=== PATIENT | female | born 1945 | race Caucasian/White ===

== ENCOUNTER 2018-01-10 07:00 | Inpatient (IN) | payer OTHER ==
[~2018-01-10] VITALS: Ht 157.5 cm; Wt 86.6 kg
[~2018-01-10 07:00] MED LIST: CIPRO XR 5500 MG/BOT PO; ZOFRAN4 MG PO
[2018-01-10] MEDS ORDERED: AVAPRO150 MG PO (07:56)
[2018-01-10] MEDS ORDERED: MAXIDE PO (07:57)
[2018-01-10] MEDS ORDERED: ECOTRIN81 MG PO (07:58)
[2018-01-10] MEDS ORDERED: TENORMIN50 M1 PO (07:58)
[2018-01-10] MEDS ORDERED: ARICEPT5 MG PO (07:58)
[2018-01-10] MEDS ORDERED: CATAFLAN PO (07:59)
[2018-01-10] MEDS ORDERED: NAMENDA10 MG PO (07:59)
[2018-01-15] MEDS ORDERED: DICLOFENAC SODI25 MG PO (09:18)
[2018-01-17] MEDS ORDERED: XARELTO10 MG PO (08:44)
[2018-01-17] MEDS ORDERED: CIPRO500 MG PO (08:44)
[2018-01-17] MEDS ORDERED: PERCOCET 5-3251 EACH PO (08:44)
== END 2018-01-17 10:45 | DRG 470 ==
LOC: O/R 01-14 05:59 → MEDI 01-14 05:59 → SURH 01-14 07:00 → MEDI 01-14 18:43
PROVIDERS: Orthopaedic Surgery
PROC: 0QNF0ZZ Release Left Patella, Open Approach (ICD-10-PCS; 2018-01-14)
PROC: 0SRD0J9 Replacement of Left Knee Joint with Synthetic Substitute, Cemented, Open Approach (ICD-10-PCS; principal; 2018-01-14 12:00)
DX: M17.12 Unilateral primary osteoarthritis, left knee (principal); D62 Acute posthemorrhagic anemia; M81.0 Age-related osteoporosis without current pathological fracture; K80.20 Calculus of gallbladder without cholecystitis without obstruction; E66.01 Morbid (severe) obesity due to excess calories; M22.12 Recurrent subluxation of patella, left knee

== ENCOUNTER 2023-01-09 09:02 | Emergency (ER) | payer OTHER ==
[~2023-01-09] VITALS: Ht 157.5 cm; Wt 77.1 kg
[~2023-01-09 09:02] MED LIST changes: +ARICEPT5 MG PO; +AVAPRO150 MG PO; +CATAFLAN PO; +CIPRO500 MG PO; +DICLOFENAC SODI25 MG PO; +ECOTRIN81 MG PO; +MAXIDE PO; +NAMENDA10 MG PO; +PERCOCET 5-3251 EACH PO; +TENORMIN50 M1 PO; +XARELTO10 MG PO
[2023-01-09] MEDS ORDERED: PROTONIX40 MG (09:13)
[2023-01-09] MEDS ORDERED: RAZADYNE ER24 MG (09:13)
[2023-01-09] MEDS ORDERED: NAMENDA XR28 MG (09:13)
[2023-01-09] MEDS ORDERED: TENORMIN50 M1 (09:13)
[2023-01-09] MEDS ORDERED: FOLIC ACID0.4 MG (09:14)
[2023-01-09] MEDS ORDERED: GLUMETZA500 MG (09:14)
[2023-01-09] MEDS ORDERED: NEURONTIN300 MG (09:14)
[2023-01-09] MEDS ORDERED: CYMBALTA60 MG (09:14)
[2023-01-09] MEDS ORDERED: DULOXETINE HCL40 MG (09:15)
[2023-01-09] MEDS ORDERED: PRAVASTATIN SOD10 MG (09:15)
[2023-01-09] MEDS ORDERED: TYLENOL ARTHRI650 MG (09:15)
[2023-01-09] MEDS ORDERED: IRBESARTAN75 MG (09:15)
== END 2023-01-09 10:26 | disposition home or self-care (01) ==
LOC: ER 09:02
DX: S89.82XA Other specified injuries of left lower leg, initial encounter (principal); W18.39XA Other fall on same level, initial encounter; Y93.89 Activity, other specified; Y92.012 Bathroom of single-family (private) house as the place of occurrence of the external cause; R07.9 Chest pain, unspecified; Z88.0 Allergy status to penicillin; Z91.041 Radiographic dye allergy status; Z91.013 Allergy to seafood

== ENCOUNTER 2023-05-11 11:43 | Emergency (ER) | payer OTHER ==
[~2023-05-11] VITALS: Ht 167.6 cm; Wt 74.8 kg
[~2023-05-11 11:43] MED LIST changes: +CYMBALTA60 MG; +DULOXETINE HCL40 MG; +FOLIC ACID0.4 MG; +GLUMETZA500 MG; +IRBESARTAN75 MG; +NAMENDA XR28 MG; +NEURONTIN300 MG; +PRAVASTATIN SOD10 MG; +PROTONIX40 MG; +RAZADYNE ER24 MG; +TENORMIN50 M1; +TYLENOL ARTHRI650 MG
[2023-05-11 15:50] LABS: HEMOGLOBIN 11.9 g/dL (12.0-15.00); MEAN CELL VOLUME 96.3 fL (80.00-100.00); MEAN CORPUSCULAR HEMOGLOBIN 32.8 pg (27.00-32.0); MEAN CORPUSCULAR HGB CONC 34.1 g/dl (32.0-36.0); PLATELET COUNT 191 K/uL (150-450); RED BLOOD COUNT 3.63 M/uL (4.00-6.00); RED CELL DISTRIBUTION WIDTH 13.3 % (11.5-14.5)
[2023-05-11 16:47] LABS: CALCIUM 9.1 mg/dL (8.5-10.1); CREATININE SERUM 1.04 mg/dL (0.55-1.02); GFR 51.12; POTASSIUM 3.98 mEq/L (3.5-5.1)
== END 2023-05-11 20:11 | disposition home or self-care (01) ==
LOC: ER 11:43
PROVIDERS: General Practice
DX: S06.0XAA Concussion with loss of consciousness status unknown, initial encounter (principal); W19.XXXA Unspecified fall, initial encounter; Y93.9 Activity, unspecified; Y92.89 Other specified places as the place of occurrence of the external cause; Y99.9 Unspecified external cause status; Z88.8 Allergy status to other drugs, medicaments and biological substances; Z88.0 Allergy status to penicillin; Z91.013 Allergy to seafood